=== PATIENT | female | born 1940 | race Caucasian/White ===

== ENCOUNTER 2018-04-28 13:18 | Emergency (ER) | payer OTHER ==
[~2018-04-28] VITALS: Ht 154.9 cm; Wt 70.3 kg
[~2018-04-28 13:18] MED LIST: ADAL40PEN; ALPR.5 PO; AMIT25 PO; AMLO5 PO; ATOR40TA PO; Aspir 8181 MG PO; BENTYL20 MG PO; CALCAVITD PO; CLOP75 PO; COMBIVENT RESPIM4 GM IH; COMBIVENT RESPIM4 GM INH; DIPYRIDAMOLE PO; ESOM20; ESOM20 PO; ESTR2 PO; ETAN50I INJ; ETAN50I SC; FLUSAL2505 INH; FOLI1 PO; IBUP800 PO; LEFL20 PO; LEVFLO250 PO; LEVO750 PO; LIDO5TP TOP; LISI5 PO; MAGNESIUM400 MG PO; METO25ER PO; MULT50L PO; NAPR500 PO; NITR.4SL SL; PRED20 PO; Questran4 GM PO; TELM80/12.5 PO; TICA90TA; TRIHYD253A PO
[2018-04-28] MEDS ORDERED: Norco 5-325 Ta1 EACH PO (14:06)
== END 2018-04-28 14:13 | disposition home or self-care (01) ==
LOC: ER 13:18
DX: S46.212A Strain of muscle, fascia and tendon of other parts of biceps, left arm, initial encounter (principal); Z88.0 Allergy status to penicillin; Z88.8 Allergy status to other drugs, medicaments and biological substances; Z79.899 Other long term (current) drug therapy; Z79.82 Long term (current) use of aspirin; Z79.01 Long term (current) use of anticoagulants; Z87.891 Personal history of nicotine dependence; W22.8XXA Striking against or struck by other objects, initial encounter
CPT/HCPCS: 99283

== ENCOUNTER 2018-07-30 10:50 | Emergency (ER) | payer OTHER ==
[~2018-07-30] VITALS: Ht 154.9 cm; Wt 64.9 kg
[~2018-07-30 10:50] MED LIST changes: +CEFP200 PO; +Hydrocodone-Ap1 EA20 PO; +Norco 5-325 Ta1 EACH PO; +ONDA4 PO
[2018-07-30 12:27] LABS: Albumin, Blood 3.4 g/dL (3.4-5.0); Albumin/Globulin Ratio 0.7 (0.8-1.8); Bilirubin, Total 1.1 mg/dL (0.1-1.0); Calcium, Blood 8.6 mg/dL (8.5-10.1); Creatinine, Blood 1.93 mg/dL (0.40-1.00); Globulin, Blood 4.6 g/dL (2.2-4.0); Potassium, Blood 4.2 mmol/L (3.5-5.5)
[2018-07-30 12:54] LABS: BASOPHILS ABSOLUTE AUTO 0.04 K/mm3 (0.00-0.23); BASOPHILS PERCENT AUTO 0 % (0-2); EOSINOPHILS ABSOLUTE AUTO 0.09 K/mm3 (0.00-0.68); EOSINOPHILS PERCENT AUTO 1 % (0-6); Hematocrit 45.7 % (33.0-51.0); Hemoglobin 15.6 g/dL (11.5-16.0); IMMATURE GRAN ABSOLUTE AUTO 0.06 K/mm3 (0.00-0.10); IMMATURE GRAN PERCENT AUTO 1 % (0-1); LYMPHOCYTES ABSOLUTE AUTO 0.57 K/mm3 (0.84-5.20); LYMPHOCYTES PERCENT AUTO 6 % (21-46); MONOCYTES ABSOLUTE AUTO 0.81 K/mm3 (0.16-1.47); MONOCYTES PERCENT AUTO 9 % (4-13); Mean Corpuscular HGB 35.1 pg (26.0-34.0); Mean Corpuscular HGB Conc 34.1 g/dL (31.5-36.5); Mean Corpuscular Volume 103 fL (80-100); Mean Platelet Volume 10.9 fL (9.1-12.4); NEUTROPHILS ABSOLUTE AUTO 7.52 K/mm3 (1.96-9.15); NEUTROPHILS PERCENT AUTO 83 % (41-73); Platelet Count 194 K/mm3 (150-400); RDW Coefficient Variation 13.5 % (11.7-14.2); RDW Standard Deviation 51.9 fL (35.1-46.3); Red Blood Cell Count 4.44 M/mm3 (3.80-5.20); White Blood Cell Count 9.09 K/mm3 (4.00-11.30)
[2018-07-30] MEDS ORDERED: Hydrocodone-Ap1 EA23 PO (15:11)
[2018-07-30] MEDS ORDERED: CALC.25 PO (15:11)
[2018-07-30] MEDS ORDERED: Isosorbide Mono30 MG PO (15:12)
[2018-07-30] MEDS ORDERED: Prednisolone Ace5 ML RIGHTEYE (15:52)
[2018-07-30] MEDS ORDERED: HOMATROPINE HYDR5 ML RIGHTEYE (15:52)
[2018-07-30] MEDS ORDERED: OMEPRAZOLE20 MG PO (15:53)
[2018-07-30] MEDS ORDERED: METO100ER PO (15:54)
== END 2018-07-30 16:58 | disposition home or self-care (01) ==
LOC: ER 10:50
PROVIDERS: Emergency Medicine; Physician Assistant
DX: E87.1 Hypo-osmolality and hyponatremia (principal); E86.0 Dehydration; N17.9 Acute kidney failure, unspecified
CPT/HCPCS: 23650; 36415; 71045; 73020; 73030; 80053; 84484; 85025; 93005; 93010; 96361; 96374; 99284-25; J3010; J7030; J7120

== ENCOUNTER 2018-09-23 12:18 | Inpatient (IN) | payer OTHER ==
[~2018-09-23] VITALS: Ht 152.4 cm; Wt 67.1 kg
[~2018-09-23 12:18] MED LIST changes: +CALC.25 PO; +HOMATROPINE HYDR5 ML RIGHTEYE; +Hydrocodone-Ap1 EA23 PO; +Isosorbide Mono30 MG PO; +METO100ER PO; +OMEPRAZOLE20 MG PO; +Prednisolone Ace5 ML RIGHTEYE
[2018-09-23 12:41] LABS: BASOPHILS ABSOLUTE AUTO 0.06 K/mm3 (0.00-0.23); BASOPHILS PERCENT AUTO 1 % (0-2); EOSINOPHILS ABSOLUTE AUTO 0.14 K/mm3 (0.00-0.68); EOSINOPHILS PERCENT AUTO 2 % (0-6); Hematocrit 44.2 % (33.0-51.0); Hemoglobin 14.3 g/dL (11.5-16.0); IMMATURE GRAN ABSOLUTE AUTO 0.02 K/mm3 (0.00-0.10); IMMATURE GRAN PERCENT AUTO 0 % (0-1); LYMPHOCYTES ABSOLUTE AUTO 0.91 K/mm3 (0.84-5.20); LYMPHOCYTES PERCENT AUTO 11 % (21-46); MONOCYTES PERCENT AUTO 11 % (4-13); Mean Corpuscular HGB 34.1 pg (26.0-34.0); Mean Corpuscular HGB Conc 32.4 g/dL (31.5-36.5); Mean Corpuscular Volume 106 fL (80-100); NEUTROPHILS ABSOLUTE AUTO 6.06 K/mm3 (1.96-9.15); NEUTROPHILS PERCENT AUTO 75 % (41-73); Platelet Count 226 K/mm3 (150-400); RDW Coefficient Variation 16.1 % (11.7-14.2); RDW Standard Deviation 63.7 fL (35.1-46.3); Red Blood Cell Count 4.19 M/mm3 (3.80-5.20); White Blood Cell Count 8.09 K/mm3 (4.00-11.30)
[2018-09-23 13:00] LABS: Alanine Aminotransfer (ALT/SGP 8 U/L (12-78); Albumin, Blood 3.7 g/dL (3.4-5.0); Alk Phos 80 U/L (50-136); Anion Gap 11 mmol/L (6-16); Aspartate Aminotrans (AST/SGOT 19 U/L (12-37); Bilirubin, Total 0.9 mg/dL (0.1-1.0); Blood Urea Nitrogen 17 mg/dL (8-24); Bun/Creatinine Ratio 11.3 (12.0-20.0); CO2, Blood 22 mmol/L (21-32); Calcium, Blood 8.9 mg/dL (8.5-10.1); Chloride, Blood 107 mmol/L (98-108); Creatinine, Blood 1.51 mg/dL (0.40-1.00); Globulin, Blood 3.7 g/dL (2.2-4.0); Glomerular Filtration Rate 35 (60-); Glucose, Blood 98 mg/dL (70-99); Potassium, Blood 4.2 mmol/L (3.5-5.5); Sodium, Blood 140 mmol/L (136-145); Total Protein, Blood 7.4 g/dL (6.4-8.2); Troponin I <0.015 ng/mL (0.000-0.040)
[2018-09-23 20:37] LABS: Troponin I <0.015 ng/mL (0.000-0.040)
[2018-09-23 20:38] LABS: CPK Creatine Kinase 31 U/L (26-193)
[2018-09-24 05:23] LABS: Hematocrit 41.9 % (33.0-51.0); Hemoglobin 13.3 g/dL (11.5-16.0); Mean Corpuscular HGB 33.3 pg (26.0-34.0); Mean Corpuscular HGB Conc 31.7 g/dL (31.5-36.5); Mean Corpuscular Volume 105 fL (80-100); Mean Platelet Volume 10.8 fL (9.1-12.4); Platelet Count 213 K/mm3 (150-400); RDW Coefficient Variation 15.9 % (11.7-14.2); RDW Standard Deviation 62.3 fL (35.1-46.3); White Blood Cell Count 5.56 K/mm3 (4.00-11.30)
[2018-09-24 05:47] LABS: Alanine Aminotransfer (ALT/SGP 10 U/L (12-78); Albumin, Blood 3.2 g/dL (3.4-5.0); Alk Phos 71 U/L (50-136); Anion Gap 9 mmol/L (6-16); Aspartate Aminotrans (AST/SGOT 13 U/L (12-37); Bilirubin, Total 0.9 mg/dL (0.1-1.0); Blood Urea Nitrogen 20 mg/dL (8-24); Bun/Creatinine Ratio 12.9 (12.0-20.0); CO2, Blood 26 mmol/L (21-32); Calcium, Blood 8.7 mg/dL (8.5-10.1); Chloride, Blood 105 mmol/L (98-108); Creatinine, Blood 1.55 mg/dL (0.40-1.00); Globulin, Blood 3.3 g/dL (2.2-4.0); Glomerular Filtration Rate 34 (60-); Glucose, Blood 88 mg/dL (70-99); Sodium, Blood 140 mmol/L (136-145); Total Protein, Blood 6.5 g/dL (6.4-8.2)
[2018-09-24 05:53] LABS: CPK Creatine Kinase 28 U/L (26-193); Troponin I <0.015 ng/mL (0.000-0.040)
[2018-09-25 05:14] LABS: Calcium, Blood 8.7 mg/dL (8.5-10.1); Creatinine, Blood 1.4 mg/dL (0.40-1.00); Potassium, Blood 3.9 mmol/L (3.5-5.5)
== END 2018-09-25 12:51 | disposition home or self-care (01) | DRG 308 ==
LOC: ER 12:18 → MEDS 16:54 → ER 17:49 → MEDS 09-25 12:51
PROVIDERS: Emergency Medicine; Hospitalist; ADMIT Internal Medicine
DX: I48.91 Unspecified atrial fibrillation (principal); J96.01 Acute respiratory failure with hypoxia; I50.33 Acute on chronic diastolic (congestive) heart failure; I13.0 Hypertensive heart and chronic kidney disease with heart failure and stage 1 through stage 4 chronic kidney disease, or unspecified chronic kidney disease; I25.10 Atherosclerotic heart disease of native coronary artery without angina pectoris; J44.9 Chronic obstructive pulmonary disease, unspecified; M06.9 Rheumatoid arthritis, unspecified; G47.33 Obstructive sleep apnea (adult) (pediatric); N18.3 Chronic kidney disease, stage 3 (moderate); K21.9 Gastro-esophageal reflux disease without esophagitis; Z95.5 Presence of coronary angioplasty implant and graft; Z88.0 Allergy status to penicillin; Z88.8 Allergy status to other drugs, medicaments and biological substances; Z79.02 Long term (current) use of antithrombotics/antiplatelets; Z79.82 Long term (current) use of aspirin; Z79.899 Other long term (current) drug therapy; Z87.891 Personal history of nicotine dependence
CPT/HCPCS: 36415; 71046; 78582; 80048; 80053; 82550; 83735; 83880; 84443; 84484; 85025; 85027; 85379; 93005; 93010; 93308; 93321; 94640; 94660; 94762; 97110; 97162; 97166; 97530; 99285-25; A9540; A9558; J1644; J1940

== ENCOUNTER 2018-11-30 05:53 | Inpatient (IN) | payer OTHER ==
[~2018-11-30] VITALS: Ht 154.9 cm; Wt 64.0 kg
[~2018-11-30 05:53] MED LIST changes: +ABAT250V SC; +CHOL10002 PO; +FLUT1DIS5 INH; +LEVFLO500 PO; +Nexium40 M1 PO; +TELM80 PO; +TIOT18 INH
--- NOTE | 2018-11-30 06:46 | NUR ---
History, Chart, Medications and Allergies reviewed before start of procedure. Patient confirms NPO status and agrees with scheduled surgery. Patient reports completing Chlorhexadine shower X2 prior to admission to hospital. KNEE HIGH BASHIR HOSE WTIH CALF PAS IN PLACE BLE.
--- NOTE | 2018-11-30 07:17 | NUR ---
NOZIN NASAL ORAL SURGEON X3 AMPULES USED TO NARES BILAT PER ORDER.
[2018-11-30] MEDS ORDERED: NITR.6SL SL (07:29)
[2018-11-30] MEDS ORDERED: METO50ER PO (07:55)
--- NOTE | 2018-11-30 09:05 | NUR ---
11/30/18 0904 Lisy Urena PT VOIDED PRIOR TO COMING TO THE OR
--- NOTE | 2018-11-30 13:37 | NUR ---
1145-PT MEDICATED X2 FOR ELEVATED BP. PT DENIES PAIN. PT REQUIRING NRB MASK TO KEEP SATS OVER 92%.DR. QUINTANA NOTIFIED AND FLUMAZICON GIVEN BY HIM. 1210- PTS RESP SLIGHTLY LABORED. RT CONSULT OBTAINED. UDN GIVEN AND PT ULTIMATELY STARTED ON CPCP WITH 8-9L O2 BLED IN. PT ENCOURAGED TO USE IS BEFORE CPCP STARTED WITH POOR RESULTS. 1330- BLOOD PRESSURES AT PTS BASELINE. O2 SATS AT 90% ON CPAP. AWAITING PCU BED.
--- NOTE | 2018-11-30 13:53 | NUR ---
1330-RT IN TI REASSESS PT. LUNGS STILL SOUND CLEAR.
[2018-11-30] MEDS ORDERED: ALBU90OI INH (15:26)
[2018-11-30] MEDS ORDERED: STIOLTO RESPIMAT4 GM INH (15:37)
[2018-11-30 16:22] LABS: Hematocrit 37.5 % (33.0-51.0); Mean Corpuscular HGB 33.1 pg (26.0-34.0); Mean Corpuscular Volume 103 fL (80-100); Mean Platelet Volume 10.5 fL (9.1-12.4); Platelet Count 189 K/mm3 (150-400); RDW Coefficient Variation 16.7 % (11.7-14.2); RDW Standard Deviation 62.9 fL (35.1-46.3); Red Blood Cell Count 3.63 M/mm3 (3.80-5.20); White Blood Cell Count 6.64 K/mm3 (4.00-11.30)
[2018-11-30 16:43] LABS: BASOPHILS PERCENT MAN 0 % (0-2); EOSINOPHILS PERCENT MAN 0 % (0-6); LYMPHOCYTES ABSOLUTE MAN 0.53 K/mm3 (0.84-5.20); LYMPHOCYTES PERCENT MAN 8 % (21-46); MONOCYTES ABSOLUTE MAN 0.26 K/mm3 (0.16-1.47); MONOCYTES PERCENT MAN 4 % (4-13); NEUTROPHILS ABSOLUTE MAN 5.84 K/mm3 (1.96-9.15); SEG NEUTROPHILS PERCENT MAN 88 % (41-73); TOTAL CELLS COUNTED 100
[2018-11-30 16:50] LABS: Albumin, Blood 3.3 g/dL (3.4-5.0); Albumin/Globulin Ratio 1.1 (0.8-1.8); Bilirubin, Total 0.5 mg/dL (0.1-1.0); Bun/Creatinine Ratio 12.2 (12.0-20.0); Creatinine, Blood 1.8 mg/dL (0.40-1.00); Globulin, Blood 3.1 g/dL (2.2-4.0); Total Protein, Blood 6.4 g/dL (6.4-8.2)
--- NOTE | 2018-11-30 17:46 | NUR ---
SHIFT SUMMARY 1420 PT RECEIVED FROM PACU. ALERT AND ORIENTED X3. DROWSY BUT WAKES UP QUICKLY TO VERBAL STIMULI. C/O NAUSEA SOON AFTER ARRIVAL TO PCU, MEDICATED WITH PRN NAUSEA MEDS. VSS EXCEPT OXYGEN SATURATIONS 89-91% ON 9L VIA OXYMIZER, ONCE PT IS MORE AWAKE, OXYGEN IS BEING TITRATED. OXYGEN DECREASED TO 6L VIA OXYMIZER, OXYGEN SATURATION 92%. AFIB ON TELEMETRY RATE 60s-70s. TRACE EDEMA TO BLE. BASHIR HOSE AND SCDs IN PLACE. RIGHT SHOULDER IN SLING, ICE APPLIED POST OP, BLANCHE DRSGilmar CDI. FAMILY AT BEDSIDE THIS AFTERNOON. PT TOLERATING DINNER WELL. WILL CONTINUE TO MONITOR.
[2018-12-01 04:13] LABS: BASOPHILS ABSOLUTE AUTO 0.01 K/mm3 (0.00-0.23); BASOPHILS PERCENT AUTO 0 % (0-2); EOSINOPHILS PERCENT AUTO 0 % (0-6); Hematocrit 34.9 % (33.0-51.0); Hemoglobin 11.4 g/dL (11.5-16.0); IMMATURE GRAN ABSOLUTE AUTO 0.03 K/mm3 (0.00-0.10); IMMATURE GRAN PERCENT AUTO 0 % (0-1); LYMPHOCYTES ABSOLUTE AUTO 0.54 K/mm3 (0.84-5.20); LYMPHOCYTES PERCENT AUTO 5 % (21-46); MONOCYTES ABSOLUTE AUTO 0.66 K/mm3 (0.16-1.47); MONOCYTES PERCENT AUTO 7 % (4-13); Mean Corpuscular HGB 33.2 pg (26.0-34.0); Mean Corpuscular HGB Conc 32.7 g/dL (31.5-36.5); Mean Corpuscular Volume 102 fL (80-100); Mean Platelet Volume 10.4 fL (9.1-12.4); NEUTROPHILS ABSOLUTE AUTO 8.85 K/mm3 (1.96-9.15); NEUTROPHILS PERCENT AUTO 88 % (41-73); Platelet Count 178 K/mm3 (150-400); RDW Coefficient Variation 16.3 % (11.7-14.2); RDW Standard Deviation 61.1 fL (35.1-46.3); Red Blood Cell Count 3.43 M/mm3 (3.80-5.20); White Blood Cell Count 10.09 K/mm3 (4.00-11.30)
[2018-12-01 05:02] LABS: Albumin, Blood 3.3 g/dL (3.4-5.0); Albumin/Globulin Ratio 1.1 (0.8-1.8); Bilirubin, Total 0.5 mg/dL (0.1-1.0); Bun/Creatinine Ratio 13.2 (12.0-20.0); Calcium, Blood 9.4 mg/dL (8.5-10.1); Creatinine, Blood 2.05 mg/dL (0.40-1.00); Potassium, Blood 4.9 mmol/L (3.5-5.5); Total Protein, Blood 6.3 g/dL (6.4-8.2)
--- NOTE | 2018-12-01 06:48 | NUR ---
SHIFT SUMMARY PT IS RESTING IN ROOM COMFORTABLY AT THIS TIME. NO ACUTE CHANGES T/O NIGHT. PT WAS ABLE TO VOID URINE LATE IN THE SHIFT, APROX 300ML. PT HAS BEEN ABLE TO STAND W/ SBA TO BSC DUE TO R ARM IN SLING. PT DENIES PAIN TO R SHOULDER, REPORTS FEELS THOUGH NERVE BLOCK HAS FADED, BUT DENIES PAIN TO AREA. ICE HAS BEEN APPLIED TO SHOULDER T/O NIGHT. CAP REFIL ON R HAND WNL. RESP EVEN UNLBAORED ON 6L OXIMIZER W/ SATS >92%. PT WORE CPAP FOR APROX 2HRS EARLY IN THE SHIFT. DENIES OTHER NEEDS AT THIS TIME. CALL LIGHT IN REACH.
--- NOTE | 2018-12-01 15:20 | NUR ---
REPORT RECEIVED FROM FREDDY ORDOÑEZ. PT TO ROOM 214 FROM U VIA . ALERT AND ORIENTED. DENIES NEEDS.
--- NOTE | 2018-12-01 15:46 | NUR ---
REPORT GIVEN TO RANULFO ORDOÑEZ ON SURGICAL FLOOR. PT TRANSFERRED TO ROOM 214 WITH ALL PERSONAL BELONGINGS.
--- NOTE | 2018-12-01 16:45 | NUR ---
assisted pt up to rr. amb w/o diff. assisted back to bed. nadn.
--- NOTE | 2018-12-01 17:55 | NUR ---
PT MEDICATED WITH TORADOL PER EMAR. PT SITTING UP IN CHAIR. NADN. FAMILY AT BEDSIDE.
--- NOTE | 2018-12-01 23:14 | NUR ---
ASSUMED CARE OF PT. PT A/O, DENIES PAIN, REPOSITIONED FOR COMFORT. DRESSING DRY/INTACT, ARM IMMOBILIZER IN PLACE. CALL LIGHT IN REACH, WILL CONT TO MONITOR.
[2018-12-02 04:24] LABS: BASOPHILS ABSOLUTE AUTO 0.01 K/mm3 (0.00-0.23); BASOPHILS PERCENT AUTO 0 % (0-2); EOSINOPHILS ABSOLUTE AUTO 0.08 K/mm3 (0.00-0.68); EOSINOPHILS PERCENT AUTO 1 % (0-6); Hematocrit 38.7 % (33.0-51.0); Hemoglobin 12.6 g/dL (11.5-16.0); IMMATURE GRAN ABSOLUTE AUTO 0.02 K/mm3 (0.00-0.10); IMMATURE GRAN PERCENT AUTO 0 % (0-1); LYMPHOCYTES ABSOLUTE AUTO 1.19 K/mm3 (0.84-5.20); LYMPHOCYTES PERCENT AUTO 17 % (21-46); MONOCYTES ABSOLUTE AUTO 0.57 K/mm3 (0.16-1.47); MONOCYTES PERCENT AUTO 8 % (4-13); Mean Corpuscular HGB 33.8 pg (26.0-34.0); Mean Corpuscular HGB Conc 32.6 g/dL (31.5-36.5); Mean Corpuscular Volume 104 fL (80-100); Mean Platelet Volume 10.8 fL (9.1-12.4); NEUTROPHILS ABSOLUTE AUTO 5.13 K/mm3 (1.96-9.15); NEUTROPHILS PERCENT AUTO 73 % (41-73); Platelet Count 165 K/mm3 (150-400); RDW Coefficient Variation 16.5 % (11.7-14.2); RDW Standard Deviation 63.6 fL (35.1-46.3); Red Blood Cell Count 3.73 M/mm3 (3.80-5.20)
--- NOTE | 2018-12-02 04:36 | NUR ---
POD 2 S/P RIGHT TOTAL SHOULDER REVERSAL. PT VSS T/O NIGHT, SATS >90% ON 2LNC. DRESSING CDI, IMMOBILIZER IN PLACE. PAIN MGD W/TYLENOL AND TORADOL W/REP RELIEF. CIRC CHECKS WNL. PT UP OOB W/SBA, HERI WELL. PT USING CALL LIGHT FOR ASSISTANCE, WILL CONT TO MONITOR UNTIL REP GIVEN TO ONCOMING RN.
[2018-12-02 04:46] LABS: Bun/Creatinine Ratio 14.5 (12.0-20.0); Calcium, Blood 9.7 mg/dL (8.5-10.1); Creatinine, Blood 2.35 mg/dL (0.40-1.00); Potassium, Blood 4.5 mmol/L (3.5-5.5)
--- NOTE | 2018-12-02 10:50 | NUR ---
IV REMOVED FOR PT DC. PRESSURE DRESSING PLACED.
--- NOTE | 2018-12-02 10:55 | NUR ---
PT DC HOME WITH FAMILY. REVIEWED INSTRUCTIONS. DRESSINGS SENT HOME WITH PT. ESCORTED PT TO LOBBY VIA .
== END 2018-12-02 10:55 | disposition home or self-care (01) | DRG 483 ==
LOC: PCU 05:53 → SURS 05:53 → PRE IP 07:30 → PCU 14:22 → SURS 12-01 15:29
PROVIDERS: Family Medicine; ADMIT Orthopaedic Surgery
PROC: 5A09357 Assistance with Respiratory Ventilation, Less than 24 Consecutive Hours, Continuous Positive Airway Pressure (ICD-10-PCS; 2018-11-30)
PROC: 0RRJ00Z Replacement of Right Shoulder Joint with Reverse Ball and Socket Synthetic Substitute, Open Approach (ICD-10-PCS; principal; 2018-11-30 07:30)
DX: M24.411 Recurrent dislocation, right shoulder (principal); J96.01 Acute respiratory failure with hypoxia; E87.1 Hypo-osmolality and hyponatremia; M06.9 Rheumatoid arthritis, unspecified; J44.9 Chronic obstructive pulmonary disease, unspecified; K21.9 Gastro-esophageal reflux disease without esophagitis; Z87.891 Personal history of nicotine dependence; G47.33 Obstructive sleep apnea (adult) (pediatric); I25.10 Atherosclerotic heart disease of native coronary artery without angina pectoris; Z95.5 Presence of coronary angioplasty implant and graft; I48.91 Unspecified atrial fibrillation; I13.10 Hypertensive heart and chronic kidney disease without heart failure, with stage 1 through stage 4 chronic kidney disease, or unspecified chronic kidney disease; N18.3 Chronic kidney disease, stage 3 (moderate)
CPT/HCPCS: 36415; 71045; 73030; 80048; 80053; 83735; 84443; 85025; 88300; 94660; 94762; 97110; 97116; 97162; 97165; 97535; A9270-GY; C1776; J0171; J0690; J0735; J1100; J1650; J1885; J2250; J2370; J2405; J2704; J2710; J2765; J2795; J3010; J7050; J7120